=== PATIENT | female | born 1995 | race African-American/Black ===

== ENCOUNTER 2017-02-12 00:46 | Emergency (ER) | payer MEDICAID, OTHER ==
[~2017-02-12] VITALS: Ht 160 cm; Wt 93.9 kg
[~2017-02-12 00:46] MED LIST: AMOXICILLIN500 MG ORAL; NKM
[2017-02-12 01:25] VITALS: BP 129/78
[2017-02-12] MEDS ORDERED: KEFLEX500 MG ORAL (02:17)
--- NOTE | 2017-02-12 02:21 | Emergency Room Report ---
History of Present Illness General Chief Complaint: Skin Rash/Abscess Source: Patient Present Illness HPI Patient presents with complaints of insect bites Patient reports that she felt them earlier this evening There are several areas involved including the back of the right leg left anterior thigh Patient denies any pain Denies any fevers or chills Denies any streaking of the areas Allergies: Coded Allergies: Dust (Verified Allergy, Unknown, 02/12/17) Patient History Past Medical History: see triage record Pertinent Family History: none Last Menstrual Period: 01/30/17 Now: No : 0 Para: 0 Reviewed Nursing Documentation: PMH: Agreed, PSxH: Agreed Nursing Documentation-PMH Past Medical History: No Stated History Review of Systems All Other Systems: negative except mentioned in HPI Physical Exam Vital Signs Date Time Temp Pulse Resp B/P Pulse Ox O2 Delivery O2 Flow Rate FiO2 02/12/17 01:21 98.8 87 12 129/78 98 Room Air Sp02 EP Interpretation: reviewed, normal General Appearance: well appearing, no apparent distress Head: normocephalic, atraumatic Eyes: bilateral eye EOMI, bilateral eye PERRL ENT: normal pharynx, no angioedema Neck: supple Respiratory: lungs clear Musculoskeletal: normal inspection Neurologic: alert, oriented x3, responsive Skin: other - 2 separate areas appear to be blister formation already secondary to insect bite in the right back calf area, small erythematous lesion left anterior thigh, no obvious fluctuance no streaking or flaring Lymphatic: no adenopathy Medical Decision Making Diagnostic Impression: Primary Impression: insect bite ER Course Patient's findings appear to be in line with likely insect bite with possible secondary infection Patient is placed on antibiotics conservatively initially does not appear septic or toxic and will have conservative outpatient trial Last Vital Signs Date Time Temp Pulse Resp B/P Pulse Ox O2 Delivery O2 Flow Rate FiO2 02/12/17 01:25 98.8 87 12 129/78 98 Room Air Status: unchanged Disposition: HOME, SELF-CARE Condition: Stable Scripts Cephalexin* (KEFLEX*) 500 Mg Capsule 500 MG ORAL Q6H, #28 CAP 0 Refills Prov: DREW GONZALEZ D.O. 02/12/17 Patient Instructions: Insect Bite, [id number] Additional Instructions: Patient is provided with the discharge instructions notified to follow up with primary doctor in the next 2-3 days otherwise return to the er with any worsening symptoms. Please note that this report is being documented using DRAGON technology. This can lead to erroneous entry secondary to incorrect interpretation by the dictating instrument. DREW GONZALEZ D.O. Feb 12, 2017 02:21
[2017-02-12 02:28] VITALS: BP 122/73
== END 2017-02-12 03:10 | disposition home or self-care (01) ==
LOC: EMR 03:04
DX: S80.861A Insect bite (nonvenomous), right lower leg, initial encounter (principal); S70.362A Insect bite (nonvenomous), left thigh, initial encounter; Z91.048 Other nonmedicinal substance allergy status; W57.XXXA Bitten or stung by nonvenomous insect and other nonvenomous arthropods, initial encounter; Y92.9 Unspecified place or not applicable
CPT/HCPCS: 99283

== ENCOUNTER 2020-03-24 22:36 | Emergency (ER) | payer MEDICAID, OTHER ==
[~2020-03-24] VITALS: Ht 160 cm; Wt 86.2 kg
[~2020-03-24 22:36] MED LIST changes: +KEFLEX500 MG ORAL
[2020-03-24] MEDS ORDERED: Ketorolac 30mg Inj IV ONE (23:00)
[2020-03-24] MEDS ORDERED: Metoclopramide 10mg/2ml Inj IVP ONE (23:00)
--- NOTE | 2020-03-24 23:01 | Emergency Room Report ---
History of Present Illness General Chief Complaint: Headache Source: Patient Present Illness HPI This is a 24-year-old female with no past medical history. She presents with complaint of headache. Her headache been coming on more frequently since September after she gave . She seen her MAT MAKING MACHINE TENDER who prescribed Motrin and Tylenol. She came in today because it is been ongoing for 3 days and more intense. [place] ally throbbing in nature. She has a ringing white noise sensation. No fever chills. [place] nauseous but no vomiting. Better with lying down. Worse with sitting up. No focal deficit. No trauma. No history of migraine. Allergies: Coded Allergies: Dust (Verified Allergy, Unknown, 02/12/17) COVID-19 Screening Contact w/high risk pt: No Experienced COVID-19 symptoms?: No COVID-19 Testing performed SENIOR ACCOUNTANT ANALYST: No Patient History Past Medical History: see triage record, old chart reviewed Past Surgical History: none Pertinent Family History: none Social History: Denies: smoking Last Menstrual Period: 03/09/20 Now: No : 1 Para: 1 Immunizations: other Reviewed Nursing Documentation: PMH: Agreed; PSxH: Agreed Nursing Documentation-PMH Past Medical History: No Stated History Review of Systems Eye: Denies: eye pain, blurred vision ENT: Denies: ear pain, nose congestion, throat swelling Respiratory: Denies: cough, shortness of breath Cardiovascular: Denies: chest pain, palpitations Gastrointestinal: Reports: nausea; Denies: abdominal pain, diarrhea, vomiting Musculoskeletal: Denies: back pain, joint pain Skin: Denies: rash Neurological: Reports: headache; Denies: numbness Endocrine: Denies: increased thirst, increased urine Hematologic/Lymphatic: Denies: easy bruising All Other Systems: negative except mentioned in HPI Physical Exam Vital Signs Date Time Temp Pulse Resp B/P (MAP) Pulse Ox O2 Delivery O2 Flow Rate FiO2 03/24/20 22:43 96.4 87 18 107/73 (84) 95 Room Air Vitals normal Sp02 EP Interpretation: reviewed, normal General Appearance: well appearing, no apparent distress, alert Head: normocephalic, atraumatic Eyes: bilateral eye PERRL, bilateral eye EOMI ENT: hearing grossly normal, normal pharynx Neck: full range of motion, supple, no meningismus Respiratory: chest non-tender, lungs clear, normal breath sounds Cardiovascular #1: regular rate, rhythm, no murmur Gastrointestinal: normal bowel sounds, non tender, no mass, no organomegaly, no bruit, non-distended Musculoskeletal: back normal, normal range of motion, gait/station normal Psychiatric: mood/affect normal Medical Decision Making Diagnostic Impression: Primary Impression: Headache Qualified Codes: R51.9 - Headache, unspecified Additional Impression: Brain mass ER Course Patient with headache. Most likely tension versus migraine. No evidence of intracranial bleed, meningitis, or neoplastic process. Pain resolved now. Will discharge home. CT/MRI/US Diagnostic Results CT/MRI/US Diagnostic Results : Imaging Test Ordered: CT head Impression Read by radiologist. 1. Right posterior fossa hyperdense probably extra-axial 2.3 x 3.1 x 4 cm mass. Follow-up contrast-enhanced CT or MRI is recommended. Differential includes large meningioma or a posterior cerebellopontine angle mass. 2. Mass-effect on the posterior fossa, fourth ventricle at the basilar cisterns. Last Vital Signs Date Time Temp Pulse Resp B/P (MAP) Pulse Ox O2 Delivery O2 Flow Rate FiO2 03/24/20 22:43 96.4 87 18 107/73 (84) 95 Room Air Status: improved Disposition: HOME, SELF-CARE Condition: Stable Scripts Acetamin/Butalbital/Caffeine* (FIORICET*) 1 Ea Tab 1 TAB ORAL Q6H, #20 TAB 0 Refills Prov: Brando Figueroa MD 03/25/20 Referrals: NON PHYSICIAN (PCP) Patient Instructions: General Headache Without Cause Additional Instructions: Follow-up with your doctor in 7 days. You will need further work up with MRI and specialist referral. Return if symptoms worsen. Brando Figueroa MD Mar 24, 2020 23:01
[2020-03-24 23:22] VITALS: BP 107/73
[2020-03-25] MEDS ORDERED: FIORICET1 EA ORAL (00:35)
--- NOTE | 2020-03-25 00:42 | Diagnostic Imaging Report ---
CT head without contrast History: Pain Technique: Axial noncontrast head CT. Technique more: CTDI is 53.40 mGy and DLP is 1072.20 mGy-cm. Technique more: One or more of the following dose reduction techniques were used: automated exposure control, adjustment of the mA and/or kV according to patient size, use of iterative reconstruction technique. Comparison: None Findings: Right posterior fossa peritoneal 2.3 x 3.1 x 4 cm mass. Further evaluation with contrast-enhanced CT or MRI is recommended. Differential would include large meningioma. Possibility of cerebellopontine angle mass such as vestibular schwannoma or lymphoma are less likely. Mass-effect with effacement of the basilar cisterns, mild effacement of the fourth ventricle is noted. Supratentorial brain also has some loss of sulci which may be normal for age. Ventricles are normal. Impression: 1. Right posterior fossa hyperdense probably extra-axial 2.3 x 3.1 x 4 cm mass. Follow-up contrast-enhanced CT or MRI is recommended. Differential includes large meningioma or a posterior cerebellopontine angle mass. 2. Mass-effect on the posterior fossa, fourth ventricle at the basilar cisterns.
[2020-03-25 00:58] VITALS: BP 107/73
== END 2020-03-25 00:59 | disposition home or self-care (01) ==
LOC: EMR 22:54
DX: R51 Headache (principal); G93.9 Disorder of brain, unspecified; R11.0 Nausea
CPT/HCPCS: 70450; 96374; 96375; J1885; J2765; Z7502; 99284